=== PATIENT | male | born 1985 | race African-American/Black ===

== ENCOUNTER 2017-07-10 15:13 | Emergency (ER) | payer OTHER ==
[2017-07-10] MEDS ORDERED: Sodium Chloride 0.9% 2.5 ML Syringe FLUSH PRN (15:23)
[2017-07-10] MEDS ORDERED: ceFAZolin 1 GM Vial IM ONE (15:23)
[2017-07-10] MEDS ORDERED: Sodium Chloride 0.9% 10 ML Syringe FLUSH PRN (15:23)
--- NOTE | 2017-07-10 15:43 | EDM.PDOC ---
ED HPI GENERAL MEDICAL PROBLEM - General Chief Complaint: Upper Extremity Injury/Pain Stated Complaint: RT HAND INJURY Time Seen by Provider: 07/10/17 15:28 Source of Information: Reports: Patient History Limitations: Reports: No Limitations - History of Present Illness INITIAL COMMENTS - FREE TEXT/NARRATIVE: HISTORY AND PHYSICAL: []32-year-old black male presenting with injury to his right hand dorsum of hand was caught in a machine that with a steel brush History of Present Illness: []Patient was patient was at work with some type of steel brush machine when his hand was drawn into the machine the dorsum skin was pulled off there is bone showing on the second metacarpal open areas noted across the dorsum Last time of eating or drinking anything was 12:30 PM Patient has been instructed to keep nothing by mouth Review of Systems: As per history of present illness and below otherwise all systems reviewed and negative. Past medical history: As per history of present illness and as reviewed below otherwise noncontributory. Surgical history: As per history of present illness and as reviewed below otherwise noncontributory. Social history: No reported history of drug or alcohol abuse. Family history: As per history of present illness and as reviewed below otherwise noncontributory. Physical exam: Alert and oriented answering questions appropriately safety personnel is with this patient HEENT: Atraumatic, normocehpalic, pupils reactive, negative for conjunctival pallor or scleral icterus, mucous membranes moist, throat clear, neck supple, nontender, trachea midline. Lungs: Clear to auscultation, breath sounds equal bilaterally, chest non tender. Heart: S1S2, regular, negative for clicks, rubs, or JVD. Abdomen: Soft, nondistended, nontender. Negative for masses or hepatossplenmegaly. Negative for costovertebral tenderness. Pelvis: Stable nontender. Genitourinary: Deferred. Rectal: Deferred Extremities: Atraumatic, negative for cords or calf pain. Neurovascular unremarkable. Neuro: Awake, alert, oriented. Cranial nerves II through XII unremarkable. Cerebellum unremarkable. Motor and sensory unremarkable throughout. Exam nonfocal. Dorsum of right hand: Gross abnormality with skin almost "degloved". Obvious tendon was severed, radial pulses intact. Spoken with Dr. Vizcarra in the emergency department visit except that the patient and asked if I would be referred to Dr. Biggs. Have discussed with the military communications specialist this patient and she has accepted transfer. Forms have been completed to transfer per ground ambulance. Diagnostics: [Right hand Xray] Right wrist x-ray No fractures were noted on examination Therapeutics: [Ancef 1 g IM] Tetanus injection Zofran Morphine Impression: [Right hand injury] Plan: [Transfer to [facility]] Definitive disposition and diagnosis as appropriate pending reevaluation and review of above. Onset: Today, Sudden Duration: Minutes: Location: Reports: Upper Extremity, Right Quality: Reports: Stabbing, Throbbing Severity: Severe Improves with: Reports: None Worsens with: Reports: Movement Right Hand Pain Score (Numeric/FACES): 4 - Related Data Allergies Allergy/AdvReac Type Severity Reaction Status Date / Time No Known Allergies Allergy Verified 07/10/17 15:20 Home Meds: Home Meds . [No Known Home Meds] 07/10/17 [History] Past Medical History - Past Health History Medical/Surgical History: Denies Medical/Surgical History Social & Family History - Family History Family Medical History: Noncontributory - Tobacco Use Smoking Status *Q: Never Smoker - Caffeine Use Caffeine Use: Reports: None - Recreational Drug Use Recreational Drug Use: No Review of Systems - Review of Systems Review Of Systems: ROS reveals no pertinent complaints other than HPI. ED EXAM, GENERAL - Physical Exam Exam: See Below (See dictation) Course - Vital Signs Last Recorded V/S: Last Vital Signs Temp 37.2 C 07/10/17 15:16 Pulse 77 07/10/17 15:16 Resp 18 07/10/17 15:16 BP 168/103 H 07/10/17 15:16 Pulse Ox 100 07/10/17 15:16 - Orders/Labs/Meds Orders: Active Orders 24 hr Category Date Time Status Vaccines to be Administered [RC] PER UNIT ROUTINE Care 07/10/17 15:53 Active Hand 2V Rt [CR] Stat Exams 07/10/17 15:22 Taken Wrist 2V Rt [CR] Stat Exams 07/10/17 15:50 Taken CBC WITH AUTO DIFF [HEME] Stat Lab 07/10/17 15:22 Ordered COMPREHENSIVE METABOLIC PN,CMP [CHEM] Stat Lab 07/10/17 15:22 Ordered INR,PT,PROTHROMBIN TIME [COAG] Stat Lab 07/10/17 15:22 Ordered Sodium Chloride 0.9% [Normal Saline] 1,000 ml Med 07/10/17 15:53 Active IV STAT Sodium Chloride 0.9% [Saline Flush] Med 07/10/17 15:23 Active 10 ml FLUSH ASDIRECTED PRN Sodium Chloride 0.9% [Saline Flush] Med 07/10/17 15:23 Active 2.5 ml FLUSH ASDIRECTED PRN Saline Lock Insert [OM.PC] Stat Oth 07/10/17 15:22 Ordered Medication Orders Sodium Chloride (Normal Saline) 1,000 mls @ 999 mls/hr IV STAT ONE Stop: 07/10/17 16:53 Sodium Chloride (Saline Flush) 10 ml FLUSH ASDIRECTED PRN PRN Reason: Keep Vein Open Sodium Chloride (Saline Flush) 2.5 ml FLUSH ASDIRECTED PRN PRN Reason: Keep Vein Open Meds: Medications Generic Name Dose Route Start Last Admin Trade Name Freq PRN Reason Stop Dose Admin Sodium Chloride 1,000 mls @ 999 mls/hr 07/10/17 15:53 Normal Saline IV 07/10/17 16:53 STAT ONE Sodium Chloride 10 ml 07/10/17 15:23 Saline Flush FLUSH ASDIRECTED PRN Keep Vein Open Sodium Chloride 2.5 ml 07/10/17 15:23 Saline Flush FLUSH ASDIRECTED PRN Keep Vein Open Discontinued Medications Generic Name Dose Route Start Last Admin Trade Name Freq PRN Reason Stop Dose Admin Cefazolin Sodium 1 gm 07/10/17 15:23 Ancef IM 07/10/17 15:24 ONETIME ONE Diphtheria/Tetanus/Acell Pertussis 0.5 ml 07/10/17 15:53 Adacel IM 07/10/17 15:54 .ONCE ONE Morphine Sulfate 4 mg 07/10/17 15:53 Morphine IVPUSH 07/10/17 15:54 ONETIME ONE Ondansetron HCl 4 mg 07/10/17 15:53 Zofran IVPUSH 07/10/17 15:54 ONETIME ONE Departure - Departure Time of Disposition: 15:57 Disposition: DC/Tfer to Acute Hospital 02 Condition: Good Clinical Impression: Injury of right hand Qualifiers: Encounter type: initial encounter Qualified Code(s): S69.91XA - Unspecified injury of right wrist, hand and finger(s), initial encounter - Discharge Information Forms: ED Department Discharge Additional Instructions: The following information is given to patients seen in the emergency department who are being discharged to home. This information is to outline your options for follow-up care. We provide all patients seen in our emergency department with a follow-up referral. The need for follow-up, as well as the timing and circumstances, are variable depending upon the specifics of your emergency department visit. If you don't have a primary care physician on staff, we will provide you with a referral. We always advise you to contact your personal physician following an emergency department visit to inform them of the circumstance of the visit and for follow-up with them and/or the need for any referrals to a consulting specialist. The emergency department will also refer you to a specialist when appropriate. This referral assures that you have the opportunity for followup care with a specialist. All of these measure are taken in an effort to provide you with optimal care, which includes your followup. Under all circumstances we always encourage you to contact your private physician who remains a resource for coordinating your care. When calling for followup care, please make the office aware that this follow-up is from your recent emergency room visit. If for any reason you are refused follow-up, please contact the [facility] emergency department at and asked to speak to the emergency department charge nurse. You were given a tetanus vaccine while in the emergency department You're given an injection of antibiotics Area will be splinted and covered prior to transportation - My Orders Last 24 Hours: My Active Orders 07/10/17 15:22 Hand 2V Rt [CR] Stat CBC WITH AUTO DIFF [HEME] Stat COMPREHENSIVE METABOLIC PN,CMP [CHEM] Stat INR,PT,PROTHROMBIN TIME [COAG] Stat Saline Lock Insert [OM.PC] Stat 07/10/17 15:23 Sodium Chloride 0.9% [Saline Flush] 10 ml FLUSH ASDIRECTED PRN Sodium Chloride 0.9% [Saline Flush] 2.5 ml FLUSH ASDIRECTED PRN 07/10/17 15:50 Wrist 2V Rt [CR] Stat 07/10/17 15:53 Vaccines to be Administered [RC] PER UNIT ROUTINE Sodium Chloride 0.9% [Normal Saline] 1,000 ml IV STAT - Assessment/Plan Last 24 Hours: My Active Orders 07/10/17 15:22 Hand 2V Rt [CR] Stat CBC WITH AUTO DIFF [HEME] Stat COMPREHENSIVE METABOLIC PN,CMP [CHEM] Stat INR,PT,PROTHROMBIN TIME [COAG] Stat Saline Lock Insert [OM.PC] Stat 07/10/17 15:23 Sodium Chloride 0.9% [Saline Flush] 10 ml FLUSH ASDIRECTED PRN Sodium Chloride 0.9% [Saline Flush] 2.5 ml FLUSH ASDIRECTED PRN 07/10/17 15:50 Wrist 2V Rt [CR] Stat 07/10/17 15:53 Vaccines to be Administered [RC] PER UNIT ROUTINE Sodium Chloride 0.9% [Normal Saline] 1,000 ml IV STAT
[2017-07-10] MEDS ORDERED: Ondansetron 4 MG/2 ML SDV IVPUSH ONE (15:53)
[2017-07-10] MEDS ORDERED: Morphine 4 MG/ML Syringe IVPUSH ONE (15:53)
[2017-07-10] MEDS ORDERED: Sodium Chloride 0.9% 1,000 ML IV ONE (15:53)
[2017-07-10] MEDS ORDERED: Diphtheria,Pertussis(Acell),Tetanus Vaccine 0.5 ML Syringe IM ONE (15:53)
[2017-07-10 17:02] LABS: CHLORIDE,CL 110 mmol/L (98-110); SODIUM,NA 142 mmol/L (136-146)
--- NOTE | 2017-07-13 14:05 | CR ---
EXAM DATE: 07/10/17 PATIENT'S AGE: 32 Patient: DWAIN MITCHELL Facility: [place], [place] Site . Site : 1985 Study: XRay Extremity Right wrist [id number] 4:08:22 PM Ordering Physician: Doctor Schuster Final Report: INDICATION: pain, top part of hand ripped completely open, everything exposed, pt can hardly move hand FINDINGS: Two views of the right wrist show no evidence of acute fracture or dislocation. Soft tissue defect over the dorsum of the hand. No other bony or soft tissue abnormalities identified. Dictated by Paul Barrientos MD @ 07/10/2017 4:36:21 PM Dictated by: Paul Barrientos MD @ 07/10/2017 16:37:16 (Electronic Signature) Report Signed by Proxy. [email or web address]
--- NOTE | 2017-07-13 14:06 | CR ---
EXAM DATE: 07/10/17 PATIENT'S AGE: 32 Patient: DWAIN MITCHELL Facility: [place], [place] Site . Site : 1985 Study: XRay Extremity Right hand [id number]/23/2017 4:09:06 PM Ordering Physician: Doctor Schuster Final Report: INDICATION: Pain following top part of a completely ripped off. TECHNIQUE: These views right hand. COMPARISON: None FINDINGS: Bones: Alignment is normal. No fractures or bone lesions. Joint spaces: Unremarkable. 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 No fractures. Dictated by Bonilla Echeverria MD @ 07/10/2017 4:51:33 PM Dictated by: Bonilla Echeverria MD @ 07/10/2017 16:51:38 (Electronic Signature) Report Signed by Proxy. [email or web address]
== END 2017-07-10 17:07 ==
LOC: MW.ED 15:13
DX: S69.91XA Unspecified injury of right wrist, hand and finger(s), initial encounter (principal); W23.1XXA Caught, crushed, jammed, or pinched between stationary objects, initial encounter; Z23 Encounter for immunization
CPT/HCPCS: 36415; 73100; 73120; 80053; 85025; 85610; 90471; 90715; 96361; 96372; 96374; 96375; 99285; J0690; J2270; J2405; J7040; 99283